=== PATIENT | male | born 2000 | race Caucasian/White ===

== ENCOUNTER 2021-10-20 06:11 | Emergency (ER) | payer BC ==
[2021-10-20] MEDS ORDERED: Acetaminophen 325 MG Tab PO ONE (06:39)
[2021-10-20] MEDS ORDERED: Ibuprofen 600 MG Tab PO ONE (06:39)
--- NOTE | 2021-10-20 06:44 | EDM.PDOC ---
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 Patient has any recent fevers, shakes, chills, nausea, vomiting, diarrhea, dysuria, frequency, urgency. Patient denies any abdominal pain. Patient has had a Covid concerns or exposures. Patient has a hemoptysis. Patient has any calf tenderness or swelling. Patient ports that the pain is been there for approximately 1 to 2 weeks. Review of systems: As per history of present illness and below otherwise all systems reviewed and negative. Past medical history: As per history of present illness and as reviewed below otherwise noncontributory. Surgical history: As per history of present illness and as reviewed below otherwise noncontributory. Social history: No reported history of drug abuse. Family history: As per history of present illness and as reviewed below otherwise noncontributory. Physical exam: This patient was seen and evaluated during the 2019 SARS-CoV-2 novel coronavirus pandemic period. Community viral transmission is ongoing at time of this encounter and the emergency department is operating under pandemic response procedures. Constitutional: Patient is oriented to person, place, and time. Appears well- developed and well-nourished. No distress. HEENT: Moist mucous membranes Head: Normocephalic and atraumatic Eyes: Right eye exhibits no discharge. Left eye exhibits no discharge. No scleral icterus Neck: Normal range of motion. No tracheal deviation present. Cardiovascular: Normal rate and regular rhythm. Pulmonary: Effort normal, no respiratory distress. Abdominal: No distention Musculoskeletal: Normal range of motion Neurologic: Alert and oriented to person, place and time. Skin: [place], warm and dry. Psychiatric: Normal mood and affect. Behavior is normal. Judgment and thought content normal. Nursing note and vital signs have been reviewed Patient's ER physical exam significant for reproducible tenderness palpation to his right pectoralis muscle. Patient reports increased pain with inspiration in the ED as well. Patient skin has no rash. Patient has reproducible pain with movement of his left arm. Diagnostics: October 20, 2021 6:23 AM: EKG: As interpreted by ER physician: Vishal: Nonspecific ST-T wave abnormalities Normal axis No evidence of ST elevation SD Normal sinus rhythm heart rate of 90 Pulse ox 99% on room air: Normal Therapeutics: Ibuprofen/acetaminophen Assessment and plan: 20-year-old who presents ER today with right-sided chest wall pain that is reproducible nature. Pain appears to be mechanical in nature. Patient be given ibuprofen and acetaminophen to assist with his pain. Patient's EKG is unremarkable. Patient's lungs are clear without any wheezing rales or rhonchi. Patient was heart is regular rate and rhythm without any murmurs gallops or rubs. Patient has an essentially normal exam other than reproducible pain to his pectoralis muscle. Differential diagnosis includes but is not limited to: CHF, ACS, PE, pneumonia, pneumothorax, asthma exacerbation, COPD exacerbation, pleural effusion, pericardial effusion, pericarditis, viral URI, influenza, bronchitis, airway foreign body, anxiety state, and many others. Definitive disposition and diagnosis as appropriate pending reevaluation and review of above. - Related Data Allergies Allergy/AdvReac Type Severity Reaction Status Date / Time No Known Allergies Allergy Verified 10/20/21 06:23 Home Meds: Home Meds . [No Known Home Meds] 10/20/21 [History] ED ROS GENERAL - Review of Systems Review Of Systems: See Below ED EXAM, GENERAL - Physical Exam Exam: See Below Course - Vital Signs Last Recorded V/S: Last Vital Signs Temp 96.7 F L 10/20/21 06:24 Pulse 94 10/20/21 06:24 Resp 17 10/20/21 06:24 BP 133/73 10/20/21 06:24 Pulse Ox 98 10/20/21 06:24 - Orders/Labs/Meds Orders: Active Orders 24 hr Category Date Time Status Acetaminophen [TylenoL] Med 10/20/21 06:39 Once 650 mg PO NOW ONE Ibuprofen [Motrin] Med 10/20/21 06:39 Once 600 mg PO ONETIME ONE Departure - Departure Time of Disposition: 06:43 Disposition: Home, Self-Care 01 Condition: Good Clinical Impression: Chest pain, musculoskeletal - Discharge Information Instructions: Chest Wall Pain, [id number] Referrals: PCP,None [Primary Care Provider] - Additional Instructions: Your seen and evaluated in ER today secondary to right-sided chest pain. The pain appears to be musculoskeletal in nature. Your EKG and your oxygen level are both normal. Your lungs and your heart sound perfect. Please take ibuprofen and acetaminophen as needed for pain and discomfort. Try to rest as much as you can and avoid repetitive motion of your right arm. Please make an appointment see your family doctor within the week for reevaluation of the pain has not resolved. Please return to the ED if you have any new or concerning symptoms. The following information is given to patients seen in the emergency department who are being discharged to home. This information is to outline your options for follow-up care. We provide all patients seen in our emergency department with a follow-up referral. The need for follow-up, as well as the timing and circumstances, are variable depending upon the specifics of your emergency department visit. If you don't have a primary care physician on staff, we will provide you with a referral. We always advise you to contact your personal physician following an emergency department visit to inform them of the circumstance of the visit and for follow-up with them and/or the need for any referrals to a consulting specialist. The emergency department will also refer you to a specialist when appropriate. This referral assures that you have the opportunity for follow-up care with a specialist. All of these measure are taken in an effort to provide you with optimal care, which includes your follow-up. Under all circumstances we always encourage you to contact your private physician who remains a resource for coordinating your care. When calling for follow-up care, please make the office aware that this follow-up is from your recent emergency room visit. If for any reason you are refused follow-up, please contact the [facility] Emergency Department at and asked to speak to the emergency department charge nurse. [facility] [address] [place] [id number] [facility] [address] [place] [address] Sepsis Event Note (ED) - Evaluation Sepsis Screening Result: No Definite Risk - Focused Exam Vital Signs: Vital Signs Temp Pulse Resp BP Pulse Ox 10/20/21 06:24 96.7 F L 94 17 133/73 98 - My Orders Last 24 Hours: My Active Orders 10/20/21 06:39 Acetaminophen [TylenoL] 650 mg PO NOW ONE Ibuprofen [Motrin] 600 mg PO ONETIME ONE - Assessment/Plan Last 24 Hours: My Active Orders 10/20/21 06:39 Acetaminophen [TylenoL] 650 mg PO NOW ONE Ibuprofen [Motrin] 600 mg PO ONETIME ONE
== END 2021-10-20 06:51 | disposition home or self-care (01) ==
LOC: MW.ED 06:11
DX: R07.89 Other chest pain (principal); I10 Essential (primary) hypertension; E11.9 Type 2 diabetes mellitus without complications
CPT/HCPCS: 93005; 99284; A9270